=== PATIENT | female | born 1985 | race Caucasian/White ===

== ENCOUNTER 2017-06-17 20:30 | Inpatient (IN) | payer BC ==
[~2017-06-17] VITALS: Ht 198.1 cm; Wt 111.5 kg
[~2017-06-17 20:30] MED LIST: IBUPROFEN800 MG PO; Motrin PO; PRENATAL TABLE1 EAC3 PO
[2017-06-17 20:38] VITALS: BP 137/63
[2017-06-17 21:01] VITALS: BP 131/97
[2017-06-17 21:16] VITALS: BP 133/79
[2017-06-17 21:31] VITALS: BP 135/78
[2017-06-17 21:46] VITALS: BP 125/73
[2017-06-17 22:49] VITALS: BP 139/69
[2017-06-18 00:01] VITALS: BP 129/73
[2017-06-18 07:18] LABS: EOSINOPHIL (%) 0.7 % (0-5); EOSINOPHIL COUNT 0.1 K/uL (0-0.3); HEMATOCRIT 32.5 % (36.0-46.0); IMMATURE GRANULOCYTE (%) 0.8 % (0.0-0.7); IMMATURE GRANULOCYTE COUNT 0.1 K/uL; INSTRUMENT ABS NEUTROPHIL CT 7.9 K/uL; LYMPHOCYTE COUNT 2.3 K/uL (1.0-2.8); MCH 27.8 PG (29.0-34.0); MCHC 33.2 G/DL (30.0-36.0); MCV 83.8 FL (83-99); MEAN PLAT.VOLUME 10.4 uM^3 (9.5-12.4); MONOCYTE (%) 7.8 % (3-12); MONOCYTE COUNT 0.9 K/uL (0-0.8); NEUTROPHIL (%) 70.1 % (45-76); NEUTROPHIL COUNT 7.9 K/uL (1.8-6.4); PLATELET COUNT 174 K/uL (156-360); RBC DIS.WIDTH-CV 13.2 % (11.8-14.6); RBC DIS.WIDTH-SD 39.9 % (39-53); RED BLOOD COUNT 3.88 M/uL (3.80-5.20); WHITE BLOOD COUNT 11.3 K/uL (4.1-10.2)
[2017-06-18 07:37] VITALS: BP 118/79
[2017-06-18] MEDS ORDERED: IBUPROFEN800 MG PO (09:31)
[2017-06-18 14:49] VITALS: BP 124/71
[2017-06-18 22:43] VITALS: BP 130/70
[2017-06-19 07:18] VITALS: BP 136/80
== END 2017-06-19 13:00 | disposition home or self-care (01) | DRG 775 ==
LOC: LDRP-OP → 2WEST 20:31 → LDRP-OP 07-13 15:40
PROVIDERS: Advanced Practice Midwife
DX: O70.0 First degree perineal laceration during delivery (principal); O62.3 Precipitate labor; O48.0 Post-term pregnancy; O99.214 Obesity complicating childbirth; E66.9 Obesity, unspecified; O22.03 Varicose veins of lower extremity in pregnancy, third trimester; Z68.33 Body mass index [BMI] 33.0-33.9, adult; Z3A.40 40 weeks gestation of pregnancy; Z37.0 Single live birth
CPT/HCPCS: 85025; J2590